=== PATIENT | female | born 1990 | race Caucasian/White ===

== ENCOUNTER 2020-07-03 09:13 | Emergency (ER) | payer OTHER, MEDICAID, SELFPAY ==
[2020-07-03 09:15] VITALS: BP 137/78; PULSE 94; RESP 14; TEMP 36.6; O2SAT 97; BMI 30.2
[2020-07-03] MEDS: TET,DIPH,PERTUSS(ACELL),VAC/PF 0.5 ML SYRINGE IM (09:35)
--- NOTE | 2020-07-03 11:08 | PC.NURSE ---
increase in pain, verbal order for Tylenol by Dr Mazariegos for pain
--- NOTE | 2020-07-03 11:14 | PC.NURSE ---
Patient initially stated that she tolerated tylenol double checked due to allergy in chart. Patient then states she is unable to take tylenol. Holding off on medications at this time. Dr Mazariegos will see patient shortly.
--- NOTE | 2020-07-03 11:31 | ED.WOUNDLAC ---
HPI - Wound/Laceration General Chief Complaint: Wound/Laceration Stated Complaint: cut right hand Time Seen by Provider: 07/03/20 09:52 Source: patient Mode of arrival: Ambulatory Limitations: no limitations History of Present Illness HPI narrative: Patient is a 29-year-old female who presents with right thumb laceration. She says she was getting the scissors out of a pocket knife. To have the scissors out the blade past to be out. Unfortunately she cut herself on the blade on her right thumb. No numbness tingling or weakness. Onset (ago): hour(s) Related Data Home Medications Medication Instructions Recorded Confirmed cyclobenzaprine Unknown #0 07/17/16 gabapentin Unknown #0 07/17/16 oxycodone [OxyContin] Unknown #0 07/17/16 Previous Rx's Medication Instructions Recorded ondansetron [Zofran ODT] 4 mg SUBLINGUAL Q6HP PRN #10 odt 07/17/16 ondansetron [Zofran ODT] 4 mg SUBLINGUAL Q6HP PRN #20 odt 07/19/16 pantoprazole [Protonix] 40 mg PO QDAY #20 tab 07/19/16 promethazine [Phenergan] 25 mg R Q6HP PRN #20 07/19/16 Allergies Allergy/AdvReac Type Severity Reaction Status Date / Time acetaminophen [From TYLENOL] Allergy Severe THROAT Verified 07/03/20 09:21 SWELLS ibuprofen [IBUPROFEN] Allergy Severe THROAT Verified 07/03/20 09:21 SWELLS morphine [MORPHINE] AdvReac Mild I GET Verified 07/03/20 09:21 MEAN Review of Systems Review of Systems Narrative: GENERAL: Denies chills,fever HEENT: Denies throat pain RESPIRATORY: Denies dyspnea, cough, wheezing CARDIOVASCULAR: Denies chest pain, palpitations GASTROINTESTINAL: Denies nausea, vomiting MUSCULOSKELETAL: Denies extremity pain, injury SKIN: See HPI NEUROLOGIC: Denies weakness, dizziness, headache, numbness 8 point review of systems is negative except for those stated above and HPI Patient History Social History Smoking Status: Current every day smoker Smoking Status: Current every day smoker alcohol intake frequency: holidays/special occasions only Substance Use Type: does not use Exam Initial Vital Signs Initial Vital Signs: Vital Signs Temperature 97.8 F 07/03/20 09:15 Pulse Rate 94 H 07/03/20 09:15 Respiratory Rate 14 07/03/20 09:15 Blood Pressure 137/78 07/03/20 09:15 Pulse Oximetry 97 07/03/20 09:15 GENERAL: Well-appearing, well-nourished and in no acute distress. CARDIOVASCULAR: peripheral pulses in tact, cap refill <2 sec RESPIRATORY: No respiratory distress, speaks in full sentences without difficulty EXTREMITIES: Normal range of motion, no clubbing or edema. Neurovascularly intact Right thumb neurovascularly intact able to do some opposition but due to pain not able to touch pinky. NEUROLOGICAL: Cranial nerves II through XII grossly intact. Normal gait and speech. SKIN: 2 cm laceration right thumb Procedures Laceration Repair Laceration 1: Site: hand (Right thumb) Side (If applicable): right Size (cm): 2 Description: linear Depth: simple, single layer Local Anesthetic: lidocaine 1% Amount of anesthesia used (mL): 1 Skin layer closed with: nylon Size (cm): 5-0 Number of sutures: 2 Technique: simple, interrupted Course Orders Ordered: Discontinued Medications Diphtheria/Tetanus/Acell Pertussis (Tet,Diph,Pertuss(Acell),Vac/Pf 0.5 Ml Syringe) 0.5 ml IM .ONCE ONE Stop: 07/03/20 09:24 Last Admin: 07/03/20 09:35 Dose: 0.5 ml Documented by: DONI Lidocaine HCl (Lidocaine 1% (Pf)) 2 ml SUBCUT NOW ONE Stop: 07/03/20 11:21 Last Admin: 07/03/20 11:37 Dose: 2 ml Documented by: DONI Vital Signs Vital signs: Vital Signs - 8 hr 07/03/20 09:15 07/03/20 11:46 Temperature 97.8 F Pulse Rate 94 H 84 Respiratory Rate 14 Blood Pressure 137/78 124/66 Pulse Oximetry 97 100 Discharge Plan Departure Patient Disposition: Home Clinical Impression: Laceration of right thumb Qualifiers: Encounter type: initial encounter Damage to nail status: without damage Foreign body presence: without foreign body Qualified Code(s): S61.011A - Laceration without foreign body of right thumb without damage to nail, initial encounter Instructions: DI for Laceration Repair Activity Restrictions/Additional Instructions: 1. Have your suture removed in 5-7 days, you may go to walk-in clinic, return to the ER or call your primary care physician. 2. No soaking in water including dishes, bathtubs, Lakes, swimming pools etc 3. Signs of infection include, but not limited to, increased redness, increased swelling, increased pain, fever and purulent drainage, if the symptoms should arise, you may need an antibiotic and you should have a reevaluation either by your primary care provider or by the emergency department. Prescriptions: No Action gabapentin 100 MG capsule Unknown Qty: 0 RF: 0 cyclobenzaprine 5 MG tablet Unknown Qty: 0 RF: 0 oxycodone [OxyContin] 40 MG tablet,oral only,ext.rel.12 hr Unknown Qty: 0 RF: 0 ondansetron [Zofran ODT] 4 MG tablet,disintegrating 4 mg Sublingual Q6HP PRNQty: 10 RF: 0 promethazine [Phenergan] 25 MG suppository 25 mg R Q6HP PRNQty: 20 RF: 0 pantoprazole [Protonix] 40 MG tablet,delayed release (DR/EC) 40 mg PO QDAY Qty: 20 RF: 0 ondansetron [Zofran ODT] 4 MG tablet,disintegrating 4 mg Sublingual Q6HP PRNQty: 20 RF: 0 Referrals: Steve Ham MD [Primary Care Provider] -
[2020-07-03] MEDS: LIDOCAINE 1% (PF) 2 ML SUBCUT (11:37)
[2020-07-03 11:46] VITALS: BP 124/66; PULSE 84; O2SAT 100
== END 2020-07-03 11:46 | disposition home or self-care (01) ==
PROVIDERS: Emergency Provider Emergency Medicine; PCP Family Medicine
DX: S61.011A Laceration without foreign body of right thumb without damage to nail, initial encounter (principal); W26.0XXA Contact with knife, initial encounter; Z23 Encounter for immunization
CPT/HCPCS: 12001; 90471; 99282; 99283; STOP; 90715

== ENCOUNTER 2020-10-27 20:44 | Emergency (ER) | payer OTHER, MEDICAID, SELFPAY ==
[2020-10-27 21:05] VITALS: BP 139/70; PULSE 107; RESP 15; TEMP 36.7; O2SAT 98; BMI 37.8
--- NOTE | 2020-10-27 21:18 | ED.GENADULT ---
HPI - General Adult General Chief complaint: Abdominal Pain Stated complaint: GERD issues, unable to eat Time Seen by Provider: 10/27/20 20:51 Source: patient Mode of arrival: Ambulatory Limitations: no limitations History of Present Illness HPI narrative: Patient is a 30-year-old female here for evaluation of epigastric abdominal pain. She states that has been going on for the past couple days in worsening when she eats. She states she has been eating Tums and Rolaids at home without any improvement. She has been on reflux medications in the past but is not currently on them. She has also had issues with pain management in the past. She has been vomiting. No blood in her vomit. No change in bowel habits. No black colored stool. No bright red colored stool. No problems breathing. Related Data Home Medications Medication Instructions Recorded Confirmed cyclobenzaprine Unknown #0 07/17/16 gabapentin Unknown #0 07/17/16 oxycodone [OxyContin] Unknown #0 07/17/16 Previous Rx's Medication Instructions Recorded ondansetron [Zofran ODT] 4 mg SUBLINGUAL Q6HP PRN #10 odt 07/17/16 ondansetron [Zofran ODT] 4 mg SUBLINGUAL Q6HP PRN #20 odt 07/19/16 pantoprazole [Protonix] 40 mg PO QDAY #20 tab 07/19/16 promethazine [Phenergan] 25 mg R Q6HP PRN #20 07/19/16 famotidine [Pepcid AC] 10 mg PO DAILY #30 tab 10/27/20 ondansetron 4 mg PO Q6H PRN #14 tab 10/27/20 sucralfate [Carafate] 1 g PO QACHS #60 tab 10/27/20 Allergies Allergy/AdvReac Type Severity Reaction Status Date / Time acetaminophen [From TYLENOL] Allergy Severe THROAT Verified 10/27/20 21:12 SWELLS ibuprofen [IBUPROFEN] Allergy Severe THROAT Verified 10/27/20 21:12 SWELLS morphine [MORPHINE] AdvReac Mild I GET Verified 10/27/20 21:12 MEAN Review of Systems Constitutional Constitutional: Denies fever(s) and Denies headache(s) ENT Ears, Nose, Mouth, and Throat: Denies headache(s) Cardiovascular Cardiovascular: Denies chest pain and Denies dyspnea Respiratory Respiratory: Denies dyspnea Gastrointestinal Gastrointestinal: Reports abdominal pain, Denies melena, Denies bloating, Denies hematochezia, Denies change in bowel habits, Denies coffee ground emesis, Denies constipation, Reports nausea and Reports vomiting Genitourinary Genitourinary: Denies dysuria Genitourinary: Denies dysuria Musculoskeletal Musculoskeletal: Denies arthralgias and Denies myalgias Integumentary/Breasts Skin/Breast: Denies rash Neurologic Neurologic: Denies behavioral changes and Denies headache(s) Psychiatric Psychiatric: Denies behavioral changes Hematologic/Lymphatic On Anticoagulants: No Allergic/Immunologic Allergic/Immunologic: Denies urticaria Patient History Medical History Gastroesophageal reflux disease Social History Smoking Status: Current every day smoker Smoking Status: Current every day smoker alcohol intake frequency: holidays/special occasions only Substance Use Type: does not use and former substance user Exam Initial Vital Signs Initial Vital Signs: Vital Signs Temperature 98.0 F 10/27/20 21:05 Pulse Rate 107 H 10/27/20 21:05 Respiratory Rate 15 10/27/20 21:05 Blood Pressure 139/70 10/27/20 21:05 Pulse Oximetry 98 10/27/20 21:05 Const General: cooperative Limitations: mental status not altered HENMT Head: normal to inspection and normocephalic Resp Effort & Inspection: normal respiratory effort Auscultation: clear to auscultation bilaterally Cardio Rate: tachycardic Rhythm: regular rhythm GI Inspection: non-distended Palpation: soft and tender (Epigastric region) Skin Lesions: no lesions Rashes: no rashes Neuro General: patient alert, patient awake and patient oriented x3 Cognition: normal cognition Speech: speech normal Extrem General: normal to inspection and capillary refill normal Psych Appearance: grossly normal and well kempt Course Orders Ordered: ED Orders 10/27/20 21:09 EKG-12 Lead Stat 10/27/20 21:22 Complete Blood Count AUTO DIFF Stat Comprehensive Metabolic Panel Stat Lipase Stat Discontinued Medications Al Hydrox/Mg Hydrox/Simethicone 20 ml/ Lidocaine HCl 15 ml 0 ml PO NOW ONE Stop: 10/27/20 21:09 Last Admin: 10/27/20 21:21 Dose: 1 ml Documented by: DONI Sodium Chloride (Normal Saline 0.9%) 1,000 mls @ 1,000 mls/hr IV BOLUS ONE Stop: 10/27/20 22:07 Last Infusion: 10/27/20 22:59 Dose: 0 mls/hr Documented by: Admin: 10/27/20 21:21 Dose: 1,000 mls/hr Documented by: DONI Ondansetron HCl (Ondansetron 4 Mg/2 Ml Inj) 4 mg IV NOW ONE Stop: 10/27/20 21:09 Last Admin: 10/27/20 21:21 Dose: 4 mg Documented by: DONI Ondansetron HCl (Ondansetron 4 Mg Odt Prepack) 1 bottle MISC SEEINSTR ONE Stop: 10/27/20 22:59 Last Admin: 10/27/20 23:08 Dose: 1 bottle Documented by: FR[place] Pantoprazole Sodium (Pantoprazole 40 Mg Vial) 40 mg IV NOW ONE Stop: 10/27/20 21:09 Last Admin: 10/27/20 21:21 Dose: 40 mg Documented by: DONI Vital Signs Vital signs: Vital Signs - 8 hr 10/27/20 21:05 10/27/20 23:29 Temperature 98.0 F Pulse Rate 107 H 101 H Respiratory Rate 15 22 Blood Pressure 139/70 147/67 H Pulse Oximetry 98 99 Medical Decision Making Lab Data Lab results reviewed: Yes I reviewed the patient's lab results. Result diagrams: 10/27/20 21:22 10/27/20 21:22 Labs: Lab Results 10/27/20 10/27/20 Range/Units 21:22 21:22 WBC 7.8 (4.5-11.0) X10^3/uL RBC 4.40 (4.0-5.2) X10^6/uL Hgb 12.8 (12.0-16.0) g/dL Hct 37.6 (36-46) % MCV 85.5 (80-100) fL MCH 29.0 (26-34) PG MCHC 34.0 (30-36) % RDW 13.9 (11.6-14.8) % Plt Count 211 (150-400) X10^3/uL Neut % (Auto) 56.1 (50-75) % Lymph % (Auto) 32.2 (25-40) % [place] % (Auto) 9.9 (3-14) % Eos % (Auto) 1.4 L (2-4) % Baso % (Auto) 0.4 (0-2) % Neut # (Auto) 4400 (4880-8835) /uL Lymph # (Auto) 2500 (2701-8446) /uL [place] # (Auto) 800 (0-900) /uL Eos # (Auto) 100 (0-450) /uL Baso # (Auto) 0 (0-100) /uL Sodium 137 (137-145) mmol/L Potassium 3.9 (3.4-5.1) mmol/L Chloride 103 (98-107) mmol/L Carbon Dioxide 28 (22-32) mmol/L BUN 15 (7-17) mg/dL Creatinine 0.69 (0.52-1.04) mg/dL Estimated GFR > 60.0 (>60) mL/min BUN/Creatinine Ratio 21.7 (6-22) Glucose 108 H (70-100) mg/dL Calcium 9.1 (8.4-10.2) mg/dL Total Bilirubin 0.8 (0.2-1.3) mg/dL AST 51 H (14-36) IU/L ALT 53 H (<35) IU/L Alkaline Phosphatase 59 (38-126) U/L Total Protein 6.0 L (6.3-8.2) g/dL Albumin 3.4 L (3.5-5.0) g/dL Globulin 2.6 (1.7-4.1) g/dL Albumin/Globulin Ratio 1.3 (1.0-2.8) Lipase 156 (23-300) U/L ECG Data Attestation: I personally reviewed and interpreted this ECG as follows: Prior ECG tracings: not available for review Interpretation: Sinus rhythm Ventricular rate 99 Normal axis Normal QRS Normal QTC No ST T wave changes MDM Narrative Medical decision making narrative: Patient reports a great improvement of her symptoms after the medications here in the ER. She thinks it was the GI cocktail that helped her the most. She is having no chest pain. No shortness of breath. She does not have a surgical abdomen. Low suspicion for gallbladder pathology. Her lipase is negative. Low suspicion for ACS. I did discuss with her that her symptoms were presumably reflux disease given her presentation although I did inform her that she needed to talk with her primary doctor about further workup to potentially have an upper endoscopy. Will send home with medications to treat reflux disease. She was given strict return precautions and follow-up instructions. She expressed understanding and agreement. Discharge Plan Departure Patient Disposition: Home Clinical Impression: Abdominal pain, Gastroesophageal reflux disease Instructions: DI for Gastroesophageal Reflux Disease (GERD), DI for Abdominal Pain-Adult Activity Restrictions/Additional Instructions: I do recommend that for the next several days you eat a bland diet. Use the nausea medicine as needed. I recommend you contact your primary provider for a follow-up his you may need further evaluation like a upper endoscopy to further evaluate your symptoms. Prescriptions for medications were electronically transmitted to [facility]. Take them as directed. Return to the emergency department for any new or worsening symptoms Prescriptions: New ondansetron 4 mg tablet,disintegrating 4 mg PO Q6H PRN (Reason: nausea and vomiting) Qty: 14 RF: 0 sucralfate [Carafate] 1 gram tablet 1 g PO QACHS Qty: 60 RF: 0 famotidine [Pepcid AC] 10 mg tablet 10 mg PO DAILY Qty: 30 RF: 2 No Action gabapentin 100 MG capsule Unknown Qty: 0 RF: 0 cyclobenzaprine 5 MG tablet Unknown Qty: 0 RF: 0 oxycodone [OxyContin] 40 MG tablet,oral only,ext.rel.12 hr Unknown Qty: 0 RF: 0 ondansetron [Zofran ODT] 4 MG tablet,disintegrating 4 mg Sublingual Q6HP PRNQty: 10 RF: 0 promethazine [Phenergan] 25 MG suppository 25 mg R Q6HP PRNQty: 20 RF: 0 pantoprazole [Protonix] 40 MG tablet,delayed release (DR/EC) 40 mg PO QDAY Qty: 20 RF: 0 ondansetron [Zofran ODT] 4 MG tablet,disintegrating 4 mg Sublingual Q6HP PRNQty: 20 RF: 0 Referrals: Steve Ham MD [Primary Care Provider] -
[2020-10-27] MEDS: SODIUM CHLORIDE 0.9% 1,000 ML 1000 ML IV (21:21)
[2020-10-27] MEDS: MAG HYDROX/ALUMINUM/SIMETH SUS 20 ML, LIDOCAINE VISCOUS 2% 15 ML PO (21:21)
[2020-10-27] MEDS: ONDANSETRON 4 MG/2 ML INJ IV (21:21)
[2020-10-27] MEDS: PANTOPRAZOLE 40 MG VIAL IV (21:21)
[2020-10-27 21:37] LABS: Add Manual Diff / Slide Review NO; Basophils Absolute Auto 0 /uL (0-100); Basophils Percent Auto 0.4 % (0-2); Eosinophils Absolute Auto 100 /uL (0-450); Eosinophils Percent Auto 1.4 % (2-4); Hematocrit 37.6 % (36-46); Hemoglobin 12.8 g/dL (12.0-16.0); Lymphocytes Absolute Auto 2500 /uL (1100-4500); Lymphocytes Percent Auto 32.2 % (25-40); Mean Corpuscular Volume 85.5 fL (80-100); Monocytes Absolute Auto 800 /uL (0-900); Monocytes Percent Auto 9.9 % (3-14); Neutrophils Absolute Auto 4400 /uL (1500-7000); Neutrophils Percent Auto 56.1 % (50-75); Platelet Count 211 X10^3/uL (150-400); Red Cell Distribution Width 13.9 % (11.6-14.8); White Blood Cell Count 7.8 X10^3/uL (4.5-11.0)
[2020-10-27 21:52] LABS: Alanine Aminotransferase 53 IU/L (<35); Albumin 3.4 g/dL (3.5-5.0); Albumin Globulin Ratio 1.3 (1.0-2.8); Alkaline Phosphatase 59 U/L (38-126); Aspartate Aminotransferase 51 IU/L (14-36); BUN Creatinine Ratio 21.7 (6-22); Bilirubin Total 0.8 mg/dL (0.2-1.3); Blood Urea Nitrogen 15 mg/dL (7-17); Calcium 9.1 mg/dL (8.4-10.2); Carbon Dioxide 28 mmol/L (22-32); Chloride 103 mmol/L (98-107); Estimated Glomerular Filt Rate > 60.0 mL/min (>60); Globulin 2.6 g/dL (1.7-4.1); Glucose 108 mg/dL (70-100); HEMOLYSIS 33 (0-50); Lipase 156 U/L (23-300); Potassium 3.9 mmol/L (3.4-5.1); Sodium 137 mmol/L (137-145)
[2020-10-27] MEDS: ONDANSETRON 4 MG ODT PREPACK 1 BOTTLE MISC (23:08)
[2020-10-27 23:29] VITALS: BP 147/67; PULSE 101; RESP 22; O2SAT 99
== END 2020-10-27 23:27 | disposition home or self-care (01) ==
PROVIDERS: Emergency Provider Emergency Medicine; PCP Family Medicine
DX: R10.13 Epigastric pain (principal); K21.9 Gastro-esophageal reflux disease without esophagitis
CPT/HCPCS: 80053; 83690; 85025; 93005; 93010; 96361; 96374; 96375; 99284; C9113; J2405